=== PATIENT | female | born 1955 | race Caucasian/White ===

== ENCOUNTER 2016-10-16 14:24 | Emergency (ER) | payer MEDICAID, OTHER ==
[~2016-10-16] VITALS: Wt 79.5 kg
[~2016-10-16 14:24] MED LIST: ACET325T33 PO; ASPI-664 PO; ATOR40TA68 PO; BACTDS PO; CEPH-443 PO; CLOP75TA27 PO; DEXL30CA2 PO; DULR PR; FER325 PO; FURO-110 PO; GABA-528 PO; HYDR4TAB PO; INSU100C SC; LANT3I SC; LISI2.5T59 PO; LORA-186 PO; METH10TA2 PO; METO-429 PO; OMEG-135 PO; ONDA4TAB95 PO; SENN-53 PO; VENL75TA2 PO
[2016-10-16] MEDS ORDERED: POTA20LI5 PO (16:04)
[2016-10-16 16:05] LABS: ADD SCAN DIFF NO
[2016-10-16] MEDS ORDERED: PANT40TA4 PO (16:05)
[2016-10-16] MEDS ORDERED: HYDR-906 PO (16:06)
[2016-10-16] MEDS ORDERED: MULT-876 PO (16:07)
[2016-10-16 16:08] LABS: ABNORMAL IP MESSAGE 1; BASOPHILS % 0.4 % (0.0-2.0); EOSINOPHILS # 0.2 10^3/ul (0.0-0.5); EOSINOPHILS % 4.7 % (0.0-7.0); HEMATOCRIT 31.5 % (37.0-47.0); HEMOGLOBIN 8.9 g/dl (12.0-16.0); LYMPHOCYTES # 1.4 10^3/ul (0.8-2.9); LYMPHOCYTES % 27.6 % (15.0-51.0); MEAN CORPUSCULAR HEMOGLOBIN 27.4 pg (29.0-33.0); MEAN CORPUSCULAR HGB CONC 28.3 g/dl (32.0-37.0); MEAN CORPUSCULAR VOLUME 96.9 fl (82.0-101.0); MEAN PLATELET VOLUME 10.5 fl (7.4-10.4); MONOCYTE # 0.4 10^3/ul (0.3-0.9); MONOCYTES % 8.3 % (0.0-11.0); NEUTROPHILS % 58.8 % (39.0-77.0); PLATELET COUNT 192 10^3/UL (140-415); RED BLOOD COUNT 3.25 10^6/ul (4.20-5.40); RED CELL DISTRIBUTION WIDTH 15.3 % (11.5-14.5); WHITE BLOOD COUNT 5.1 10^3/ul (4.8-10.8)
[2016-10-16] MEDS ORDERED: METO-448 PO (16:08)
[2016-10-16] MEDS ORDERED: MAGN400T28 PO (16:09)
[2016-10-16] MEDS ORDERED: IBUP-1542 PO (16:10)
[2016-10-16] MEDS ORDERED: GLUC1KIT IJ (16:11)
[2016-10-16] MEDS ORDERED: FURO40TA4 PO (16:12)
[2016-10-16] MEDS ORDERED: GABA-526 PO (16:12)
[2016-10-16] MEDS ORDERED: DOCU-159 PO (16:13)
[2016-10-16] MEDS ORDERED: ATOR80TA75 PO (16:13)
[2016-10-16] MEDS ORDERED: ALBU2.5V3 NEB (16:15)
[2016-10-16 16:23] LABS: ALBUMIN 3.5 g/dl (3.3-4.9)
[2016-10-16 16:25] LABS: BILIRUBIN,INDIRECT 0.3 mg/dl (0-1.1); BILIRUBIN,TOTAL 0.3 mg/dl (0.2-1.3); CREATININE 0.83 mg/dl (0.44-1.00)
[2016-10-16 16:26] LABS: ALBUMIN/GLOBULIN RATIO 0.92; TOTAL PROTEIN 7.3 g/dl (6.1-8.1)
--- NOTE | 2016-10-16 18:19 | RADRPT ---
PROCEDURE: Left breast ultrasound. CLINICAL INDICATION: Left breast pain and swelling. TECHNIQUE: High-resolution sonography of the left breast was performed in the axial and sagittal p lanes. COMPARISON: No prior study is available for comparison. FINDINGS: There is no cystic or solid mass. There is diffuse edema of the left breast parenchyma in the 3 o'clock, 6 o'clock, and 9 o'clock posi tions. IMPRESSION: 1. No cystic or solid mass. No evidence of abscess. 2. Diffuse edema of the left breast parenchyma and 3 o'clock, 6 o'clock, and 9 o'clock positions. 3. Any further management regarding any breast symptoms should be based upon clinical grounds. RPTAT: QQ .Chilango Carrillo MD, MD Date Time Electronically viewed and signed by .Chilango Carrillo MD, MD on 10/16/2016 18:19 .R/
[2016-10-16 18:30] VITALS: BP 117/71; PULSE 73; RESP 14; TEMP 98.3
[2016-10-16] MEDS ORDERED: CEPH-443 PO (18:53)
[2016-10-16] MEDS ORDERED: BACTDS PO (18:53)
--- NOTE | 2016-10-16 18:53 | ERD ---
ER Documentation Chief Complaint Date/Time DATE: 10/16/16 TIME: 18:50 Chief Complaint LEFT BREAST PAIN AND HARDENED AREA FOR 3 DAYS. NO FEVERS. HPI This is a 60-year-old female presents to the emergency room for evaluation of left-sided breast pain and reddening for the past 3 days. The patient denies any fevers, she denies any discharge from the breast, and has not been on any antibiotics. The patient came to the ER today for evaluation. She is denying any aggravating or relieving factors and localizes her pain to the left breast only. The patient is denying any chest pain or palpitations shortness of breath ROS All systems reviewed and are negative except as per history of present illness. Medications Home Meds Reported Medications Albuterol Sulfate* (Albuterol Sulfate* Neb) 0.083%-3 Ml Neb, 1.25 MG NEB Q8H Y for SHORTNESS OF BREATH, #30 VIAL 10/16/16 Atorvastatin* (Atorvastatin*) 80 Mg Tablet, 80 MG PO QHS, #30 TAB 10/16/16 Docusate Sodium* (Docusate Sodium*) 100 Mg Capsule, 100 MG PO BID, #60 CAP 10/16/16 Furosemide* (Furosemide*) 40 Mg Tablet, 40 MG PO BID, TAB 10/16/16 Gabapentin* (Gabapentin*) 600 Mg Tablet, 600 MG PO TID, #90 TAB 10/16/16 Glucagon,Human Recombinant (Glucagon Emergency Kit) 1 Mg Kit, 1 MG IJ NEEDED Y for PRN, KIT FOR BLOOD GLUCOSE<60 10/16/16 Ibuprofen* (Ibuprofen*) 600 Mg Tablet, 600 MG PO Q8 Y for FEVER, TAB 10/16/16 Magnesium Oxide* (Magnesium Oxide*) 400 Mg Tablet, 400 MG PO TID, TAB 10/16/16 Metoprolol Tartrate* (Lopressor*) 25 Mg Tab, 12.5 MG PO BID, #60 TAB 10/16/16 Multivit-Min/Iron Fum/Folic AC (Zblyc-Dohwkkd-Kjmiuruq Tablet) 1 Each Tablet, 1 EACH PO DAILY, TAB 10/16/16 Hydrocodone/Acetaminophen ([place] 5-325 Tablet) 1 Each Tablet, 1 EACH PO Q6H Y for PAIN, TAB 10/16/16 Pantoprazole* (Pantoprazole*) 40 Mg Tablet.dr, 40 MG PO DAILY, TAB 10/16/16 Potassium Chloride* (Potassium Chloride*) 20 Meq/15 Ml Liquid, 20 MEQ PO BID, ML 10/16/16 Ondansetron Hcl* (Ondansetron Hcl*) 4 Mg Tablet, 4 MG PO Q4H Y for FOR NAUSEA AND VOMITING, TAB 02/29/16 Insulin Glargine* (Lantus*) 100 Unit/Ml Soln, 20 UNIT SC QAM, #1 VIAL 02/29/16 Insulin Lispro (Humalog) 100 U/Ml Cartridge, 0 SC SLIDING SCALE, EA IF 0-150=0; 151-200=2 UNITS; 201-250=4 UNITS; 251-300=6 UNITS; 301-350=8 UNITS; 351-400=10 UNITS; 401+=12 UNITS; CALL MD IF BS<70 OR>400 02/29/16 Methadone Hcl* (Methadone*) 10 Mg Tab, 10 MG PO Q6H for PAIN, TAB HOLD FOR SEDATION 10/13/14 Aspirin* (Aspirin* EC) 81 Mg Tablet., 81 MG PO DAILY, TAB 10/13/14 Clopidogrel Bisulfate (Clopidogrel) 75 Mg Tablet, 75 MG PO DAILY, TAB 10/13/14 Discontinued Reported Medications Sennosides* (Senna Lax*) 8.6 Mg Tablet, 17.2 TAB PO DAILY for FOR BOWEL MNGT, TAB 02/29/16 Acetaminophen* (Tylenol*) 325 Mg Tablet, 650 MG PO Q4H Y for MILD PAIN LEVEL 1-3 , TAB ELEVATED TEMP>100F NTE 3GM APAP/24HRS 02/29/16 Fish Oil* (Fish Oil*) 1,000 Mg Cap, 1000 MG PO DAILY, CAP 02/29/16 Hydromorphone Hcl* (Hydromorphone Hcl*) 4 Mg Tablet, 4 MG PO Q4H Y for PAIN, TAB 02/29/16 Dexlansoprazole (Dexilant) 30 Mg Mickey., 30 MG PO DAILY, #30 CAP 02/29/16 Loratadine* (Claritin*) 10 Mg Tablet, 10 MG PO Q8 Y for ALLERGIC REACTION, TAB 02/29/16 Bisacodyl* (Bisacodyl*) 10 Mg Supp, 10 MG SC Q24H for CONSTIPATION, SUPP 02/29/16 Venlafaxine Hcl* (Effexor XR*) 75 Mg Tab.er.24, 75 MG PO DAILY for SADNESS, TAB.SA 10/13/14 Metoprolol Tartrate* (Lopressor*) 50 Mg Tab, 25 MG PO BID, TAB 10/13/14 Lisinopril* (Lisinopril*) 2.5 Mg Tablet, 2.5 MG PO DAILY, TAB 10/13/14 Furosemide* (Lasix*) 20 Mg Tablet, 10 MG PO DAILY, TAB 10/13/14 Ferrous Sulfate* (Ferrous Sulfate*) 325 Mg Tabec, 325 MG PO DAILY, TAB 10/13/14 Gabapentin* (Gabapentin*) 800 Mg Tablet, 800 MG PO Q6, TAB 10/13/14 Atorvastatin* (Atorvastatin*) 40 Mg Tablet, 40 MG PO HS, TAB 10/13/14 Discontinued Scripts Sulfamethoxazole-Trimethoprim* (Bactrim* DS) 800-160 Mg Tab, 1 TAB PO BID for 14 Days, TAB Prov:MAYUR SALCEDO DO 02/28/16 Cephalexin* (Keflex*) 500 Mg Capsule, 500 MG PO QID for 7 Days, CAP Prov:ISSAC BAIRES. 05/21/15 Sulfamethoxazole-Trimethoprim* (Bactrim* DS) 800-160 Mg Tab, 1 TAB PO BID for 7 Days, TAB Prov:ISSAC BAIRES. 05/21/15 Allergies Allergies: Coded Allergies: No Known Allergy (Unverified , 10/16/16) PMhx/Soc History of Surgery: Yes (CABG 2006, STENT , RT AKA , ) Anesthesia Reaction: No Hx Neurological Disorder: Yes (PVD) Hx Respiratory Disorders: No Hx Cardiac Disorders: Yes (HTN,CHF) Hx Psychiatric Problems: Yes (DEPRESSION) Hx Miscellaneous Medical Probl: Yes (LT LEG CELLULITIS ,DM ) Hx Alcohol Use: No Hx Substance Use: No Hx Tobacco Use: Yes Smoking Status: Former smoker Physical Exam Vitals Vital Signs Date Time Temp Pulse Resp B/P Pulse Ox O2 Delivery O2 Flow Rate FiO2 10/16/16 17:34 98.6 75 16 104/68 98 Nasal Cannula 2.0 10/16/16 14:26 99.0 82 20 139/63 91 Physical Exam INITIAL VITAL SIGNS: Reviewed by me GENERAL: The patient is well developed and appropriate for usual state of health in no apparent distress HEENT: Pupils equal, round, and reactive to light. EOMI. There is no scleral icterus. NECK: C-spine is soft and supple, there is no meningismus. There is no cervical lymphadenopathy. LUNGS: Clear to auscultation bilaterally. There are no rales, wheezes or rhonchi. HEART: Regular rate and rhythm, no murmurs, clicks, rubs or gallops. ABDOMEN: Soft, non-tender, non-distended. There are bowel sounds in all four quadrants. No rebound or guarding. EXTREMITIES: Right BKA, there is no peripheral cyanosis or edema. No focal swelling or erythema. NEUROLOGICAL: The patient moves all four extremities with 5/5 strength. Cranial nerves II - XII are intact. Normal gait. Alert and oriented SKIN: Moderate soft tissue swelling of the left breast, there is small area of erythema over the left breast just superior to the areola, no discharge. No area of fluctuance HEME/LYMPHATIC: There is no evidence of excessive bruising or lymphedema. PSYCHIATRIC: The patient does not appear anxious or depressed. Result Diagram: 10/16/16 1600 10/16/16 1550 Results 24 hrs Laboratory Tests Test 10/16/16 15:50 10/16/16 16:00 Alanine Aminotransferase (ALT/SGPT) 20IU/L Albumin 3.5g/dl Albumin/Globulin Ratio 0.92 Alkaline Phosphatase 76IU/L Anion Gap 16 Aspartate Amino Transf (AST/SGOT) 19IU/L Blood Urea Nitrogen 10mg/dl Calcium Level 9.0mg/dl Carbon Dioxide Level 31mmol/L Chloride Level 105mmol/L Creatinine 0.83mg/dl Direct Bilirubin 0.00mg/dl Globulin 3.80g/dl Glucose Level 155mg/dl Indirect Bilirubin 0.3mg/dl Potassium Level 4.0mmol/L Sodium Level 148mmol/L Total Bilirubin 0.3mg/dl Total Protein 7.3g/dl Basophils # 0.010^3/ul Basophils % 0.4% Eosinophils # 0.210^3/ul Eosinophils % 4.7% Hematocrit 31.5% Hemoglobin 8.9g/dl Lymphocytes # 1.410^3/ul Lymphocytes % 27.6% Mean Corpuscular Hemoglobin 27.4pg Mean Corpuscular Hemoglobin Concent 28.3g/dl Mean Corpuscular Volume 96.9fl Mean Platelet Volume 10.5fl Monocytes # 0.410^3/ul Monocytes % 8.3% Neutrophils # 3.010^3/ul Neutrophils % 58.8% Nucleated Red Blood Cells # 0.010^3/ul Nucleated Red Blood Cells % 0.0/100WBC Platelet Count 80376^3/UL Red Blood Count 3.2510^6/ul Red Cell Distribution Width 15.3% White Blood Count 5.110^3/ul Current Medications Medications (Trade) Dose Ordered Sig/[place] Route PRN Reason Start Time Stop Time Status Last Admin Dose Admin Ceftriaxone Sodium (Rocephin) 50 ml @ 100 mls/hr ONCE ONCE IVPB 10/16/16 19:00 10/16/16 19:29 Procedures/MDM Ultrasound breast: 1. No cystic or solid mass. No evidence of abscess. 2. Diffuse edema of the left breast parenchyma and 3 o'clock, 6 o'clock, and 9 o'clock positions. 3. Any further management regarding any breast symptoms should be based upon clinical grounds. This 60-year-old presents to the ER for evaluation of swelling in the left breast. I did note moderate amount of soft tissue swelling and redness to the breast. The ultrasound was obtained which does not show any visible abscess however she does have diffuse lymphedema. The patient had lab work drawn which does not show any leukocytosis. She was given Rocephin IV in the emergency room and will be discharged home with a prescription for Bactrim, and Keflex for breast cellulitis. Departure Diagnosis: Primary Impression: Cellulitis of left breast Additional Impression: Normocytic anemia Condition: Stable MAYUR SALCEDO DO Oct 16, 2016 18:52
[2016-10-16] MEDS ORDERED: CEFTRIAXONE 1 GM/50 ML (PMX) 50 ML IVPB ONE (19:00)
== END 2016-10-16 19:57 | disposition home or self-care (01) ==
LOC: E/R 14:24
DX: L03.313 Cellulitis of chest wall (principal); D64.9 Anemia, unspecified; I10 Essential (primary) hypertension; E11.9 Type 2 diabetes mellitus without complications; I50.9 Heart failure, unspecified; Z79.4 Long term (current) use of insulin; Z87.891 Personal history of nicotine dependence; Z79.82 Long term (current) use of aspirin; Z95.5 Presence of coronary angioplasty implant and graft
CPT/HCPCS: 76642; 80053; 85025; 96374; J0696; Z7502